=== PATIENT | male | born 1990 | race Caucasian/White ===

== ENCOUNTER 2016-07-23 12:17 | Emergency (ER) | payer OTHER ==
[~2016-07-23] VITALS: Ht 152.4 cm; Wt 80.0 kg
[2016-07-23] MEDS ORDERED: NORCO 5/3251 TABLET PO (15:54)
[2016-07-23 16:36] VITALS: BP 133/72
== END 2016-07-23 15:54 | disposition home or self-care (01) ==
LOC: EME 12:17 → EDBD 12:17 → EME 15:54
PROC: 0RSJXZZ Reposition Right Shoulder Joint, External Approach (ICD-10-PCS; principal; 2016-07-23)
DX: S43.014A Anterior dislocation of right humerus, initial encounter (principal); S43.034A Inferior dislocation of right humerus, initial encounter; V00.311A Fall from snowboard, initial encounter; Y93.23 Activity, snow (alpine) (downhill) skiing, snowboarding, sledding, tobogganing and snow tubing
CPT/HCPCS: 73030; 99281; 99285; J1170; J2270